=== PATIENT | male | born 1980 | race Caucasian/White ===

== ENCOUNTER 2017-09-16 09:57 | Outpatient (CLI) | payer OTHER ==
--- NOTE | 2017-09-16 14:07 | MRI Report ---
EXAM: MRI LUMBAR SPINE WITHOUT CONTRAST EXAM DATE: 09/16/2017 10:42 AM. CLINICAL HISTORY: LOW BACK PAIN, INTERVERTEBRAL DISC DISORDERS with radiculopathy. COMPARISON: Lumbar spine MRI 11/16/2012. TECHNIQUE: Multiplanar, multisequence T1-weighted and fluid-sensitive sequences of the lumbar spine f rom T12 to S2 without contrast. Other: None. FINDINGS: Spinal Cord: The conus terminates at L1. The conus medullaris and cauda equina are unremarkable. Alignment: No scoliosis or spondylolisthesis. Bone Marrow: Five [id number] lumbar vertebral bodies are assumed. No gross fractures or bone les ions. There is edema involving L5-S1 endplates. Disk Levels/Facets: T12-L1: Unremarkable. L1-L2: Unremarkable. L2-L3: There is no disk protrusion. There is mild facet hypertrophy. No central canal or neural shama inal narrowing. L3-L4: There is no disk protrusion. There is mild facet hypertrophy and ligament flavum thickening. N o significant central canal narrowing. There is mild left neural foraminal narrowing. L4-L5: There is disk desiccation. There is a broad-based disk bulge. There is mild facet hypertrophy and ligamentum flavum thickening. There is mild central canal narrowing. There is moderate bilateral neural foraminal narrowing. L5-S1: There is disk height loss with endplate degenerative changes. There is a small disk bulge. The re is mild facet hypertrophy. No central canal narrowing. There is moderate bilateral neural foramina l narrowing. Comment: The following findings are so common in adults without low back pain that while we report th eir presence, they must be interpreted with caution and in the context of the clinical situation. (Re karen Hoyt et al, Spine 2001) Prevalence of findings in patients without low back pain: Disk degeneration (any evidence): 92% Disk desiccation/T2 signal loss: 83% Disk height loss: 56% Disk bulge: 64% Disk protrusion: 32% Annular tear/high intensity zone: 38% Musculature: Normal. No edema or fatty atrophy. Other: The partially visualized retroperitoneum is unremarkable. IMPRESSION: 1. L4-L5 disk bulge and posterior element degenerative changes with mild central canal narrowing (sta ble). 2. Moderate bilateral L4-L5 and moderate bilateral L5-S1 neural foraminal narrowing. Mild bilateral L 3-L4 neural foraminal narrowing (stable). 3. L5-S1 endplate degenerative changes with edema (interval progression). [facility] Referring Provider Line: [phone] SITE ID: [id number]
== END 2017-09-16 09:58 | disposition home or self-care (01) ==
LOC: DI 09:57
PROVIDERS: ATTEND Physician Assistant
DX: M51.16 Intervertebral disc disorders with radiculopathy, lumbar region (principal); M54.5 Low back pain
CPT/HCPCS: 72148

== ENCOUNTER 2020-01-16 10:13 | Outpatient (CLI) | payer OTHER ==
[2020-01-16] MEDS ORDERED: BUFFERED LIDOCAINE 10 ML SYRINGE ONE (12:15)
[2020-01-16] MEDS ORDERED: BUFFERED LIDOCAINE 10 ML SYRINGE IU ONE (14:51)
[2020-01-16] MEDS ORDERED: TRIAMCINOLONE 40 MG/ML VIAL IM ONE (14:55)
[2020-01-16] MEDS ORDERED: BUPIVACAINE 0.5% PF 10 ML VIAL IM ONE (14:56)
--- NOTE | 2020-01-16 15:01 | Ultrasound Report ---
PROCEDURE: Injection Single Tendon INDICATIONS: BICIPTAL TENDINITIS TECHNIQUE: The indications, alternatives, benefits, risks, and complications of the procedure were explained to the patient. Written informed consent was obtained and placed in the chart. The patient was placed in an appropriate position on the fluoroscopy table, and a site was chosen for percutaneous access un jovani ultrasound guidance. Local anesthetic was administered using a 1% lidocaine solution. A hypoder maria dolores or spinal needle was then used to access the symptomatic region. The location of the needle tip w as confirmed by real time ultrasound imaging, followed by steroid administration. The needle was the n withdrawn, and a bandage applied to the puncture site. FINDINGS: Region injected: Right biceps tendon Medications injected: 4 mL of 40 mg/mL Kenalog and 0.5% Ropivacaine mixture. Complications: None. IMPRESSION: Successful ultrasound guided administration of steroid and anaesthetic solution into the right biceps tendon Reviewed by: Katherin Valle MD on 01/16/2020 2:59 PM PDT Approved by: Katherin Valle MD on 01/16/2020 2:59 PM PDT Station ID: [id number]
== END 2020-01-16 10:14 | disposition home or self-care (01) ==
LOC: DI 10:13
PROVIDERS: ATTEND Orthopaedic Surgery
DX: M75.21 Bicipital tendinitis, right shoulder (principal)
CPT/HCPCS: 20550